=== PATIENT | male | born 1965 | race Caucasian/White ===

== ENCOUNTER → 2020-06-07 | Outpatient (CLI) | payer OTHER ==
[~2020-06-07] MED LIST: ASPIRIN81 M1 PO; FLUTICASONE-SA1 EAC5 INH; INCRUSE ELLI62.5 MCG INH; NORVASC10 MG PO; TYLENOL EXTRA500 MG PO; VOLTAREN ARTHRI20 GM T
--- NOTE | 2020-06-07 07:32 | NUR ---
INFORMED CONSENT SIGNED FOR CARDIOLYTE STRESS TEST WITH DR. BLANCO. RESTING EKG NSR, HR 72, BP 124/80. COMPLETED 5:21 OF A TWO MINUTE KARLY PROTOCOL COMPLETING 1:21 STAGE III, 3.4MPH/14% GRADE. PEAK HR OF 143 ACHIEVED WHICH IS 87% PREDICTED MAXIMUM AND A PEAK BP OF 158/62. NO ARRHYTHMIAS OR ST CHANGES NOTED. TEST TERMINATED D/T FATIGUE. PT DID C/O BILATERALLY LEG FATIGUE. HAS A FAIR EXERCISE TOLERANCE. LAST RECOVERY HR 102, BP 134/84. WAITING NUCLEAR SCANNING IN STABLE CONDITION.
== END | disposition home or self-care (01) ==
LOC: CARD 05:54
DX: M79.602 Pain in left arm (principal)

== ENCOUNTER → 2021-02-02 | Outpatient (CLI) | payer OTHER | END | disposition home or self-care (01) | LOC: CT 09:58 | PROVIDERS: ATTEND Nurse Practitioner Family | DX: R59.0 Localized enlarged lymph nodes (principal); J43.9 Emphysema, unspecified ==